=== PATIENT | male | born 1965 | race Caucasian/White ===

== ENCOUNTER 2018-07-03 18:52 | Emergency (ER) | payer MEDICAID, MEDICARE ==
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
[2018-07-03] MEDS ORDERED: LORazepam TAB(*) 1 MG PO ONE (23:09)
[2018-07-03 23:56] VITALS: BP 134/85
== END 2018-07-04 | disposition home or self-care (01) ==
LOC: ED 18:52
DX: F41.9 Anxiety disorder, unspecified (principal); Z59.0 Homelessness
CPT/HCPCS: 99284; A9270-GY

== ENCOUNTER 2018-08-07 22:24 | Inpatient (IN) | payer SELFPAY ==
[2018-08-07] MEDS ORDERED: Pantoprazole IV* 40 MG IV ONE (22:28)
[2018-08-07] MEDS ORDERED: Ondansetron INJ* 2 MG/ML VIAL IV ONE (22:28)
[2018-08-07] MEDS ORDERED: NS 0.9% 1000 ML** 1,000 ML IV ONE (22:28)
[2018-08-07] MEDS ORDERED: Pantoprazole* 80 mg IN NS 80 MG/250 ML BAG IVPB ONE (22:28)
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
[2018-08-07 23:30] LABS: Activated Partial Thrombo Time 28.1 seconds (26.0-36.3); INR 0.97 (0.82-1.09)
[2018-08-07 23:40] LABS: Albumin 4.6 g/dL (3.2-5.2); Albumin/Globulin Ratio 1.3 (1-3); BUN/Creatinine Ratio 17.9 (8-20); Calcium 10.1 mg/dL (8.6-10.3); EGFR African American 116.1 (>60); Globulin 3.5 g/dL (2-4); Potassium 4.6 mmol/L (3.5-5.0); Total Bilirubin 0.4 mg/dL (0.2-1.0); Total Protein 8.1 g/dL (6.4-8.9)
[2018-08-08 01:16] LABS: ABS Basophils 0 10^3/ul (0-0.2); ABS Eosinophils 0.1 10^3/ul (0-0.6); ABS Lymphocytes 0.6 10^3/ul (1.0-4.8); ABS Monocytes 0.5 10^3/ul (0-0.8); ABS Nucleated RBC 0 10^3/ul; Eosinophil % 0.9 %; Hematocrit 39 % (42-52); Hemoglobin 13.5 g/dL (14.0-18.0); Lymphocyte % 5.4 %; Mean Corpuscular HGB Conc 34 g/dL (31-36); Mean Corpuscular Hemoglobin 31 pg (27-31); Mean Corpuscular Volume 89 fL (80-94); Mean Platelet Volume 7.5 fL (7.4-10.4); Nucleated Red Blood Cells % 0; Platelet Count 397 10^3/uL (150-450); Red Cell Distribution Width 13 % (10.5-15); White Blood Count 11.3 10^3/uL (3.5-10.8)
[2018-08-08] MEDS ORDERED: Morphine 4 MG/ML VIAL (1 ml) 4 MG/ML VIAL IV ONE (02:15)
[2018-08-08 02:58] LABS: Hematocrit 39 % (42-52); Hemoglobin 13.5 g/dL (14.0-18.0)
[2018-08-08] MEDS ORDERED: Morphine 4 MG/ML VIAL (1 ml) 4 MG/ML VIAL IV PRN (03:55)
[2018-08-08] MEDS: NS 0.9% 1000 ML** 1,000 ML IV SCH ×3 (04:10→16:36)
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
[2018-08-08] MEDS ORDERED: PROCHLORPERAZINE INJ 5 MG/ML 2 ML VIAL IV PRN (04:57)
[2018-08-08] MEDS ORDERED: Ondansetron INJ* 2 MG/ML VIAL IV PRN (04:58)
[2018-08-08 06:19] LABS: ABS Basophils 0 10^3/ul (0-0.2); ABS Eosinophils 0.1 10^3/ul (0-0.6); ABS Lymphocytes 0.8 10^3/ul (1.0-4.8); ABS Monocytes 0.9 10^3/ul (0-0.8); ABS Neutrophils 10.3 10^3/ul (1.5-7.7); ABS Nucleated RBC 0 10^3/ul; Eosinophil % 0.9 %; Hematocrit 39 % (42-52); Hemoglobin 13.2 g/dL (14.0-18.0); Lymphocyte % 6.5 %; Mean Corpuscular HGB Conc 34 g/dL (31-36); Mean Corpuscular Hemoglobin 30 pg (27-31); Mean Corpuscular Volume 90 fL (80-94); Mean Platelet Volume 7.8 fL (7.4-10.4); Nucleated Red Blood Cells % 0; Platelet Count 382 10^3/uL (150-450); Red Blood Count 4.34 10^6 /uL (4.18-5.48); Red Cell Distribution Width 13 % (10.5-15); White Blood Count 12.1 10^3/uL (3.5-10.8)
[2018-08-08 06:37] LABS: BUN/Creatinine Ratio 14.6 (8-20); Calcium 9.5 mg/dL (8.6-10.3); EGFR African American 119.4 (>60); EGFR Non-African American 98.7 (>60); Potassium 3.7 mmol/L (3.5-5.0)
--- NOTE | 2018-08-08 10:21 | PN ---
Hospitalist Progress Note Date of Service: 08/08/18 I have seen and examined Mr. Duarte and assume his care today. He is feeling much better than he did last night. No more vomiting. Mild pain in his epigastric area without radiation. No nausea, no further bleeding, no diarrhea , no constipation. T 98.1 HR 77 113/70 On exam, he is alert and well appearing. Has hiccups frequently. RRR, no murmurs. Abdomen is mildly tender to palpation in epigastric area, negative moore's sign, liver palpable at costal margin, old appendectomy scar and peg tube scar. A: Upper GI bleed. No known liver disease, no NSAID use, no etoh use, no recent illness. Hgb stable, hemodynamically stable. Will discuss with GI and check another hgb later today.
[2018-08-08] MEDS: Pantoprazole* 80 mg IN NS 80 MG/250 ML BAG IVPB SCH (13:18)
[2018-08-08] MEDS ORDERED: Midazolam* 1 MG/ML 5 ML VIAL (5 MG) ONE (14:43)
[2018-08-08] MEDS ORDERED: fentaNYL* 50 MCG/ML 2 ML VIAL (100 MCG VIAL) ONE (14:53)
[2018-08-08] MEDS ORDERED: Lidocaine 2% PF * 5 ML VIAL ONE (15:01)
[2018-08-08] MEDS ORDERED: DiMENhydriNATE IV* 50 MG/ML VIAL ONE (15:01)
[2018-08-08] MEDS ORDERED: PROCHLORPERAZINE INJ 5 MG/ML 2 ML VIAL ONE (15:01)
[2018-08-08] MEDS ORDERED: Propofol* 10 MG/ML 20 ML BTL ONE (15:01)
--- NOTE | 2018-08-08 15:30 | PN ---
Progress Note - Progress Note Date of Service: 08/08/18 Note: GI Brief EGD Note Severe LA-D ulcerative esophagitis. No fresh or old blood No clear carmen love Gastropathy Nml duodenum Rec: Full liquids tonight Compazine PRN for hiccups. PPI drip tonight given severity, then BID PO PPI x 3months starting 08/09 Will need repeat EGD at that time to eval for Sparks's/dysplasia Check h pylori stool ag. If stable on 08/08, advance diet and may be d/c on PO PPI BID [id number] with repeat egd as above. Cullen Wallace DO 08/08/18, 1534
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
--- NOTE | 2018-08-09 01:55 | PRO ---
CC: Dr. Ludmila Zee * DATE OF PROCEDURE: 08/08/18 - ROOM #431 INDICATION FOR PROCEDURE: Hematemesis. PROCEDURE PERFORMED: Complete esophagogastroduodenoscopy. MEDICATIONS GIVEN: Please see Anesthesia record. DESCRIPTION OF PROCEDURE: After the EGD procedure including the risks, benefits , and alternatives with the risks not limited to perforation, surgery, missed lesions, and/or were explained to the patient, written informed consent was obtained. IV medication was given and a bite-block was placed between the teeth. The adult Olympus gastroscope was then inserted into the patient's oropharynx, into the tubular esophagus. The entire esophagus had LA-D erosive esophagitis. There was no fresh or old blood visualized; however, the mucosa was quite friable. An associated 4-cm hiatal hernia from 39-43 cm was appreciated. The scope was then advanced into the stomach. On retroflexion, no significant Robert erosions were appreciated, but the aforementioned hiatal hernia was visualized. The antrum in the body of the stomach had mild gastropathy. No ulceration or erosion. The scope was then advanced though the widely patent pylorus into the duodenal bulb, C-loop, and distal duodenum. These were normal in appearance. The scope was then removed from the patient. He tolerated the procedure well. He returned to the recovery room in stable condition. IMPRESSION: 1. Complete esophagogastroduodenoscopy. 2. Severe LA-D erosive esophagitis. 3. No fresh or old blood. 4. A 4-cm hiatal hernia. 5. Gastropathy. RECOMMENDATIONS: Check a stool H. pylori antigen. I would leave him on the Protonix drip this evening and keep him on a full liquid diet. If his hemoglobin is stable on 08/09/18 and no further hematemesis, can be switched to oral Protonix 40 mg twice daily. He needs to be on this for 3 months' time to heal up this erosive esophagitis. He will need a repeat EGD at that time to evaluate for Sparks's mucosa and dysplasia as it is too inflamed right now to visualize if there is any Sparks's mucosa underneath this. He should continue to avoid NSAIDs. [id number]/[facility] #: [id number] [facility]
[2018-08-09] MEDS: Pantoprazole* 80 mg IN NS 80 MG/250 ML BAG IVPB SCH (01:59)
[2018-08-09] MEDS: NS 0.9% 1000 ML** 1,000 ML IV SCH (02:01)
[2018-08-09] MEDS ORDERED: Pantoprazole* 80 mg IN NS 80 MG/250 ML BAG IVPB SCH (03:00)
[2018-08-09 11:31] VITALS: BP 128/85
[2018-08-09] MEDS ORDERED: Pantoprazole TAB * 40 MG TAB PO ONE (12:48)
== END 2018-08-09 13:45 | disposition home or self-care (01) | DRG 378 ==
LOC: ED 22:24 → MEDTELE 08-08 02:21
PROVIDERS: ADMIT Internal Medicine; ATTEND Internal Medicine
PROC: 0DJ08ZZ Inspection of Upper Intestinal Tract, Via Natural or Artificial Opening Endoscopic (ICD-10-PCS; principal; 2018-08-08 14:30)
DX: K92.0 Hematemesis (principal); K22.10 Ulcer of esophagus without bleeding; K31.9 Disease of stomach and duodenum, unspecified; R06.6 Hiccough; G89.29 Other chronic pain; F12.90 Cannabis use, unspecified, uncomplicated; K44.9 Diaphragmatic hernia without obstruction or gangrene; F41.9 Anxiety disorder, unspecified; F10.21 Alcohol dependence, in remission; Z87.820 Personal history of traumatic brain injury; Z91.048 Other nonmedicinal substance allergy status; Z83.3 Family history of diabetes mellitus
CPT/HCPCS: 36415; 71045; 80048; 80053; 83690; 85014; 85018; 85025; 85610; 85730; 86703; 86850; 86900; 86901; 93005; 99284; A9270-GY; J0780; J1240; J2250; J2270; J2405; J2704; J3010

== ENCOUNTER 2018-09-20 21:59 | Emergency (ER) | payer MEDICAID ==
--- NOTE | 2018-09-20 22:59 | ED ---
Psychiatric Complaint - HPI Summary HPI Summary: This patient is a 53 year old male brought in by law enforcement on a 941 presenting to [facility] with a chief complaint of hallucinations. He states he thinks random people have been walking into his home and have keys to it. Law enforcement states he has been walking into residences that are not his. According to law enforcement patient has not been cooperative all day, ran out of his Ativan two months ago, and admits to taking methamphetamines 11 hours ago. - History Of Current Complaint Chief Complaint: EDMentalHealth Time Seen by Provider: 09/20/18 22:44 Hx Obtained From: Patient, Other: - Law enforcement Onset/Duration: Lasting Hours Character: Anxious Aggravating Factor(s): Drug Use Associated Signs And Symptoms: Positive: Hallucinating, Paranoid Behavior Related History: Positive For: Prior Psychiatric Issues - Allergies/Home Medications Allergies/Adverse Reactions: Allergies Allergy/AdvReac Type Severity Reaction Status Date / Time iodine Allergy Hives Verified 07/03/18 19:17 PMH/Surg Hx/FS Hx/Imm Hx Endocrine/Hematology History: Denies: Hx Diabetes Cardiovascular History: Denies: Hx Hypertension GI History: Denies: Hx Ulcer Musculoskeletal History: Reports: Hx Arthritis, Other Musculoskeletal History - multiple broken bones Sensory History: Denies: Hx Contacts or Glasses, Hx Hearing Aid Opthamlomology History: Denies: Hx Contacts or Glasses Neurological History: Reports: Other Neuro Impairments/Disorders - TBI Psychiatric History: Reports: Hx Anxiety - Surgical History Surgery Procedure, Year, and Place: craniotomy, peg tube, tracheotomy Infectious Disease History: No Infectious Disease History: Denies: Traveled Outside the [place] in Last 30 Days - Family History Known Family History: Negative: Cardiac Disease, Hypertension, Diabetes - Social History Alcohol Use: Weekly Alcohol Amount: hx alcoholism Hx Substance Use: Yes Substance Use Type: Reports: Marijuana, Other Substance Use Comment - Amount & Last Used: Aisha Hx Tobacco Use: Yes Smoking Status (MU): Former Smoker Review of Systems Negative: Fever Psychological: Other - Hallucinations All Other Systems Reviewed And Are Negative: Yes Physical Exam - Summary Physical Exam Summary: VITAL SIGNS: Reviewed. GENERAL: Patient is a well-developed and nourished MALE who is lying comfortable in the stretcher. Patient is not in any acute respiratory distress. HEAD AND FACE: No signs of trauma. No ecchymosis, hematomas or skull depressions. No sinus tenderness. EYES: PERRLA, EOMI x 2, No injected conjunctiva, no nystagmus. EARS: Hearing grossly intact. Ear canals and tympanic membranes are within normal limits. MOUTH: Oropharynx within normal limits. NECK: Supple, trachea is midline, no adenopathy, no JVD, no carotid bruit, no c- spine tenderness, neck with full ROM. CHEST: Symmetric, no tenderness at palpation LUNGS: Clear to auscultation bilaterally. No wheezing or crackles. CVS: Regular rate and rhythm, S1 and S2 present, no murmurs or gallops appreciated. ABDOMEN: Soft, non-tender. No signs of distention. No rebound no guarding, and no masses palpated. Bowel sounds are normal. EXTREMITIES: FROM in all major joints, no edema, no cyanosis or clubbing. NEURO: Alert and oriented x 3. No acute neurological deficits. Speech is normal and follows commands. SKIN: Dry and warm PSYCH: Depressed, quiet, and denies any suicidal thoughts or plan. No homicidal thoughts or plan. No signs of psychosis or pressure speech. No tangential speech. Seems anxious. Triage Information Reviewed: Yes Vital Signs On Initial Exam: Initial Vitals Temp Pulse Resp BP Pulse Ox 98.9 F 144 20 157/114 98 09/20/18 22:05 09/20/18 22:05 09/20/18 22:05 09/20/18 22:05 09/20/18 22:05 Vital Signs Reviewed: Yes Diagnostics - Vital Signs Vital Signs Temp Pulse Resp BP Pulse Ox 09/20/18 22:05 98.9 F 144 20 157/114 98 - Laboratory Result Diagrams: 09/21/18 00:30 09/21/18 00:29 Lab Statement: Any lab studies that have been ordered have been reviewed, and results considered in the medical decision making process. Course/Dx - Course Course Of Treatment: This patient is a 53 year old male brought in by law enforcement on a 941 presenting to [facility] with a chief complaint of hallucinations. This patient will be signed out to Dr. Park pending MHE. - Differential Dx/Clinical Impression Provider Diagnosis: Methamphetamine substance use disorder, mild, in sustained remission, in controlled environment, abuse Discharge - Sign-Out/Discharge Documenting (check all that apply): Sign-Out Patient Signing out patient TO: Luis Park - At 0700 Pending MHE - Discharge Plan Patient Education Materials: Methamphetamine (By mouth) Referrals: No Primary Care Phys,NOPCP [Primary Care Provider] - - Attestation Statements Document Initiated by Scribe: Yes Documenting Scribe: Juvenal Kingsley Provider For Whom Jessieibe is Documenting (Include Credential): Susana Barron MD Scribe Attestation: IJuvenal, scribed for Susana Barron MD on 09/21/18 at 2308. Scribe Documentation Reviewed: Yes Provider Attestation: The documentation as recorded by the jessieibJuvenal ocampo accurately reflects the service I personally performed and the decisions made by me, Susana Barron MD Status of Scribe Document: Viewed
[2018-09-20] MEDS ORDERED: ALPRAZolam TAB* 0.5 MG PO ONE (23:03)
[2018-09-20] MEDS ORDERED: LORazepam INJ* 2 MG/ML 1 ML VIAL IM ONE (23:28)
[2018-09-20] MEDS ORDERED: Lorazepam PYXIS KEY PRN (23:28)
[2018-09-20] MEDS ORDERED: Haloperidol INJ IV/IM* 5 MG/ML AMP IM ONE (23:28)
[2018-09-20] MEDS ORDERED: diPHENhydraMINE IV* 50 MG/ML 1 ml VIAL (BENADRYL) IM ONE (23:29)
[2018-09-20] MEDS ORDERED: Lorazepam PYXIS KEY ONE (23:30)
[2018-09-21 00:38] LABS: ABS Lymphocytes 0.3 10^3/ul (1.0-4.8); ABS Monocytes 0.3 10^3/ul (0-0.8); ABS Neutrophils 8.5 10^3/ul (1.5-7.7); Eosinophil % 0.3 %; Hematocrit 36 % (42-52); Hemoglobin 12.5 g/dL (14.0-18.0); Lymphocyte % 3.5 %; Mean Corpuscular HGB Conc 35 g/dL (31-36); Mean Corpuscular Hemoglobin 30 pg (27-31); Mean Corpuscular Volume 87 fL (80-94); Mean Platelet Volume 7.5 fL (7.4-10.4); Nucleated Red Blood Cells % 0.1; Platelet Count 270 10^3/uL (150-450); Red Blood Count 4.13 10^6 /uL (4.18-5.48); Red Cell Distribution Width 14 % (10-15); White Blood Count 9.2 10^3/uL (3.5-10.8)
[2018-09-21 00:54] LABS: ALT 13 U/L (7-52); AST 25 U/L (13-39); Albumin 4.6 g/dL (3.2-5.2); Albumin/Globulin Ratio 1.5 (1-3); Alkaline Phosphatase 68 U/L (34-104); Anion Gap 12 mmol/L (2-11); BUN/Creatinine Ratio 25.7 (8-20); Blood Urea Nitrogen 26 mg/dL (6-24); CO2 Carbon Dioxide 23 mmol/L (22-32); Calcium 9.6 mg/dL (8.6-10.3); Chloride 102 mmol/L (101-111); EGFR African American 93.9 (>60); EGFR Non-African American 77.6 (>60); Globulin 3.1 g/dL (2-4); Glucose 116 mg/dL (70-100); Potassium 3.8 mmol/L (3.5-5.0); Sodium 137 mmol/L (135-145); Total Protein 7.7 g/dL (6.4-8.9)
[2018-09-21 01:18] LABS: Acetaminophen < 15 mcg/mL; Alcohol < 10 mg/dL (<10); Salicylate < 2.50 mg/dL (<30)
[2018-09-21 01:31] LABS: TSH (Thyroid Stimulating Horm) 1.61 mcIU/mL (0.34-5.60)
--- NOTE | 2018-09-21 07:17 | ED ---
Progress - Progress Note Progress Note: The patient is a sign-out to Dr. Donny Kwan MD, from Dr. Susana Barron MD, at change of shift at 0700 pending MHE and disposition. Per Mago José, mental health dewaxer, the patient is clear for discharge by Dr. Mantilla, psychiatry, at 1900 with dx of substance abuse disorder and follow up with [facility] [place]. Course/Dx - Course Course Of Treatment: The patient is a sign-out to Dr. Donny Kwan MD, from Dr. Susana Barron MD, at change of shift at 0700 pending MHE and disposition. Per Mago José, mental health dewaxer, the patient is clear for discharge by Dr. Mantilla, psychiatry, at 1900 with dx of substance abuse disorder and follow up with [facility] [place]. - Diagnoses Provider Diagnoses: Substance abuse Discharge - Sign-Out/Discharge Documenting (check all that apply): Patient Departure - Patient will be discharged home., Receiving Sign-Out Receiving patient FROM: Susana Barron - Patient is a sign-out from Dr. Barron at change of shift pending MHE and disposition. Patient Received Moderate/Deep Sedation with Procedure: No - Discharge Plan Condition: Stable Disposition: HOME Patient Education Materials: Methamphetamine (By mouth) Referrals: No Primary Care Phys,NOPCP [Primary Care Provider] - - Billing Disposition and Condition Condition: STABLE Disposition: Home - Attestation Statements Document Initiated by Scribe: Yes Documenting Scribe: Alejandra Gordon Provider For Whom Reji is Documenting (Include Credential): Dr. Donny Kwan MD Scribe Attestation: Alejandra Lazar scribed for Dr. Donny Kwan MD on 09/25/18 at 0714. Scribe Documentation Reviewed: Yes Provider Attestation: The documentation as recorded by the Alejandra quiñones accurately reflects the service I personally performed and the decisions made by me, Dr. Donny Kwan MD Status of Scribe Document: Viewed
--- NOTE | 2018-09-21 08:16 | PN ---
ED Flex Patient Progress Note Subjective: This is a 53 year-old M who is pending psychiatric evaluation secondary to _hallucinations . Report also indicates methamphetamine use - partial tox screen complete. Pt offers no complaints at this time. Would like to try breakfast after taking protonix which he takes at home 40mg BID. Objective: Vitals: Most recent vital signs documented below. General Alert and oriented x3, appears to have mild tremor, mild anxiety but pleasant, cooperative. EENT: mucosa moist, EOMI Heart: S1/S2, mild tachycardia Lungs: CTA, breathing easily AB: + BS, soft INTEG: no acute injuries identified FARZANEH: moving well NEURO: CN II-XII grossly intact Extremities: no edema, well perfused PSYCH: pleasant, calm, cooperative, appropriate affect Assessment: 1) Hallucinations 2) Substance abuse Plan: 1 and 2 - Pending psychiatric evaluation. Will follow up daily _while in ED____ . Vital Signs Temp Pulse Resp BP Pulse Ox 98.9 F 89 14 85/53 98 09/20/18 22:05 09/21/18 07:25 09/20/18 23:42 09/21/18 07:25 09/21/18 07:25 Lab Results - Entire Visit 09/21/18 09/21/18 00:30 00:29 WBC 9.2 RBC 4.13 L Hgb 12.5 L Hct 36 L MCV 87 MCH 30 MCHC 35 RDW 14 Plt Count 270 MPV 7.5 Neut % (Auto) 92.5 Lymph % (Auto) 3.5 Tompkins % (Auto) 3.3 Eos % (Auto) 0.3 Baso % (Auto) 0.4 Absolute Neuts (auto) 8.5 H Absolute Lymphs (auto) 0.3 L Absolute Monos (auto) 0.3 Absolute Eos (auto) 0.0 Absolute Basos (auto) 0.0 Absolute Nucleated RBC 0.0 Nucleated RBC % 0.1 Sodium 137 Potassium 3.8 Chloride 102 Carbon Dioxide 23 Anion Gap 12 H BUN 26 H Creatinine 1.01 Est GFR ( Amer) 93.9 Est GFR (Non-Af Amer) 77.6 BUN/Creatinine Ratio 25.7 H Glucose 116 H Calcium 9.6 Total Bilirubin 0.70 AST 25 ALT 13 Alkaline Phosphatase 68 Total Protein 7.7 Albumin 4.6 Globulin 3.1 Albumin/Globulin Ratio 1.5 TSH 1.61 Salicylates < 2.50 Acetaminophen < 15 Serum Alcohol < 10
[2018-09-21] MEDS: Pantoprazole TAB * 40 MG TAB PO SCH ×2 (08:43→23:18)
[2018-09-21 14:48] LABS: Urine Appearance Cloudy; Urine Bilirubin Negative (Negative); Urine Blood Negative (Negative); Urine Color Yellow; Urine Glucose Negative (Negative); Urine Ketones 1+ (Negative); Urine Nitrite Negative (Negative); Urine Protein Negative (Negative); Urine Urobilinogen Negative (Negative)
[2018-09-21 15:08] LABS: Urine Benzodiazepine Screen None Detected (None Detect); Urine Opiates Screen None Detected (None Detect)
--- NOTE | 2018-09-21 19:20 | ED ---
Progress - Progress Note Progress Note: The patient was intended to be discharged while under Dr. Aquiles morales. However at 1916, mental health staff, informed me that the patient will now be place on mental health hold until the morning. - Consult/PCP Time Called: 11:40 Course/Dx - Course Course Of Treatment: This patient was orginally planned to be discharged under Dr. Aquiles morales. However, at 1916 mental health staff informed me that the patient expressed SI prior to discharge and will be held until further evaluation in the morning. While the patient was in the flex unit, I was not informed of any changes. This patient will be signed out to Dr. Kwan awaiting further evaluation. - Diagnoses Provider Diagnoses: Substance abuse Discharge - Sign-Out/Discharge Documenting (check all that apply): Sign-Out Patient, Receiving Sign-Out Signing out patient TO: Donny NICHOLSON Receiving patient FROM: Donny NICHOLSON Patient Received Moderate/Deep Sedation with Procedure: No - Discharge Plan Condition: Stable Patient Education Materials: Methamphetamine (By mouth) Referrals: No Primary Care Phys,NOPCP [Primary Care Provider] - - Attestation Statements Document Initiated by Scribe: Yes Documenting Scribe: Laina Bustillos Provider For Whom Scribe is Documenting (Include Credential): Susana Barron MD Scribe Attestation: Laina Lazar, scribed for Susana Barron MD on 09/22/18 at 0657. Status of Scribe Document: Ready
--- NOTE | 2018-09-22 07:08 | ED ---
Progress - Progress Note Progress Note: The patient is a sign-out from Dr. Susana Barron MD, to Dr. Donny Kwan MD, at change of shift at 0700 on 09/22/2018 pending MHE and disposition. Kalie Woodall, mental health products mechanical design engineer, and Dr. Mantilla, psychiatry, came to reassess the patient in the ED at 1600. Dr. Mantilla reports that the patient is able to be discharged because there is no current justification for his admission, and he doesn't want to go home, but he is refusing other facilities that he has been referred to in the area. The patient states that he wants to get a bus ticket and go to [place]. There is not a licensed social worker available because it is the weekend, but the on-call licensed social worker reports that the only referral we can offer him at this time is to the long-term that he has already been referred to and refused. - Consult/PCP Time Called: 11:40 Course/Dx - Course Course Of Treatment: The patient is a sign-out from Dr. Susana Barron MD, to Dr. Donny Kwan MD, at change of shift at 0700 on 09/22/2018 pending MHE and disposition. Kalie Woodall, mental health products mechanical design engineer, and Dr. Mantilla, psychiatry, came to reassess the patient in the ED at 1600. Dr. Mantilla reports that the patient is able to be discharged because there is no current justification for his admission, and he doesn't want to go home, but he is refusing other facilities that he has been referred to in the area. The patient states that he wants to get a bus ticket and go to [place]. There is not a licensed social worker available because it is the weekend, but the on-call licensed social worker reports that the only referral we can offer him at this time is to the long-term that he has already been referred to and refused. At 1800, the patient is being discharged with referral to the long-term in [place] after agreeing with mental health products mechanical design engineer since there are no other options for the patient at this time that he is agreeable with. - Diagnoses Provider Diagnoses: Substance abuse Discharge - Sign-Out/Discharge Documenting (check all that apply): Patient Departure - Patient will be discharged home., Receiving Sign-Out Receiving patient FROM: Susana Barron - Patient is a sign-out from Dr. Barron at shift change at 0700 pending MHE and disposition. Patient Received Moderate/Deep Sedation with Procedure: No - Discharge Plan Condition: Stable Disposition: HOME Patient Education Materials: Methamphetamine (By mouth) Referrals: No Primary Care Phys,NOPCP [Primary Care Provider] - - Billing Disposition and Condition Condition: STABLE Disposition: Home - Attestation Statements Document Initiated by Scribe: Yes Documenting Scribe: Alejandra Gordon Provider For Whom Reji is Documenting (Include Credential): Dr. Donny Kwan MD Scribe Attestation: Alejandra Lazar, scribed for Dr. Donny Kwan MD on 09/25/18 at 0715. Scribe Documentation Reviewed: Yes Provider Attestation: The documentation as recorded by the Alejandra quiñones accurately reflects the service I personally performed and the decisions made by me, Dr. Donny Kwan MD Status of Scribe Document: Viewed
[2018-09-22 08:24] VITALS: BP 94/78
[2018-09-22] MEDS: Pantoprazole TAB * 40 MG TAB PO SCH (09:23)
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
[2018-09-22] MEDS ORDERED: hydrOXYzine HCL TAB* 25 MG PO ONE (18:06)
== END 2018-09-22 17:59 | disposition home or self-care (01) ==
LOC: ED 21:59
DX: F15.11 Other stimulant abuse, in remission (principal); F19.10 Other psychoactive substance abuse, uncomplicated; R44.3 Hallucinations, unspecified; Z87.891 Personal history of nicotine dependence
CPT/HCPCS: 36415; 80053; 80307; 80320; 80329; 81003; 84443; 85025; 96372; 99285; A9270-GY; G0480; J1200; J1630; J2060